=== PATIENT | female | born 1940 | race Caucasian/White ===

== ENCOUNTER 2017-10-02 10:50 | Emergency (ER) | payer MEDICARE, BC ==
--- NOTE | 2017-10-02 11:47 | ED ---
Abdominal Pain/Female - HPI Summary HPI Summary: This is angela Baig documenting for attending Svitlana Wellington MD. This patient is a 77 year old F presenting to ED with a chief complaint of RLQ abdominal pain since 0200 this morning. At 0200 this morning, she woke up from the pain and couldnt fall back asleep. Yesterday morning, the patient was traveling through [place] when she had RLQ aching; it subsided during the day. She is aware that she has a kidney stone currently on her R side. She also reports that on 09/29/17 and 09/30/17, her hemorrhoids bled more than they ever have before. She was able to have BM yesterday and today. The CC is described as sharp and intermittent. The patient rates the pain 3/10 in severity. Symptoms aggravated by certain position. Symptoms alleviated by nothing. Patient denies urinary frequency, burning with urination, N/V, fever, and chills. The patient is not from [place], she is from [place]. She has not had any abdominal surgeries. - History of Current Complaint Chief Complaint: EDFlankPain Stated Complaint: RT FLANK ACHE Time Seen by Provider: 10/02/17 11:22 Hx Obtained From: Patient Onset/Duration: Sudden Onset, Lasting Days - since yesterday morning, subsided during the day, Still Present Timing: Intermittent Episode Lasting Severity Initially: Mild Severity Currently: Mild Pain Intensity: 3 Pain Scale Used: 0-10 Numeric Location: Discrete At: RLQ Character: Sharp Aggravating Factor(s): Other: - certain positions Alleviating Factor(s): Nothing Associated Signs and Symptoms: Positive: Other: - Patient denies urinary frequency, burning with urination, N/V, fever, and chills. Allergies/Adverse Reactions: Allergies Allergy/AdvReac Type Severity Reaction Status Date / Time Sulfa (Sulfonamide Allergy Rash Verified 10/02/17 10:54 Antibiotics) Home Medications: Home Medications Amlodipine Besylate [Norvasc] 5 mg PO DAILY 10/02/17 [History Confirmed 10/02/17 ] Fluticasone HFA 110 mcg(NF) [Flovent HFA 110 mcg(NF)] 1 puff INH BID 10/02/17 [ History Confirmed 10/02/17] PMH/Surg Hx/FS Hx/Imm Hx Cardiovascular History: Reports: Hx Hypertension History: Reports: Hx Kidney Stones Musculoskeletal History: Reports: Hx Arthritis Infectious Disease History: No Infectious Disease History: Denies: Traveled Outside the [place] in Last 30 Days - Family History Known Family History: Positive: Cardiac Disease, Hypertension, Diabetes, Other Family History: lymphoma - Social History Alcohol Use: Occasionally Alcohol Amount: 2 glasses Substance Use Type: Reports: None Smoking Status (MU): Former Smoker Review of Systems Negative: Fever, Chills Positive: Abdominal Pain - RLQ. Negative: Vomiting, Nausea Positive: other - hemorrhoids. Negative: burning, frequency All Other Systems Reviewed And Are Negative: Yes Physical Exam - Summary Physical Exam Summary: GENERAL: Patient is a well-developed and nourished FEMALE who is lying comfortable in the stretcher. Patient is not in any acute respiratory distress. HEAD AND FACE: Normocephalic EYES: PERRLA, EOMI x 2. EARS: Hearing grossly intact. MOUTH: Oropharynx within normal limits. NECK: Supple, trachea is midline, no adenopathy, no JVD, no carotid bruit. CHEST: Symmetric, no tenderness at palpation LUNGS: Clear to auscultation bilaterally. No wheezing or crackles. CVS: Regular rate and rhythm, S1 and S2 present, no murmurs or gallops appreciated. ABDOMEN: Soft, non-tender. Bowel sounds are normal. No abdominal abnormal pulsations. Unable to reproduce her pain. Minimal R CVA tenderness EXTREMITIES: Full ROM in all major joints, no edema, no cyanosis or clubbing. NEURO: Alert and oriented x 3. No acute neurological deficits. Speech is normal and follows commands. SKIN: Dry and warm Triage Information Reviewed: Yes Vital Signs On Initial Exam: Initial Vitals Temp Pulse Resp BP Pulse Ox 98 F 73 14 151/78 99 10/02/17 10:56 10/02/17 10:56 10/02/17 10:56 10/02/17 10:56 10/02/17 10:56 Vital Signs Reviewed: Yes Diagnostics - Vital Signs Vital Signs Temp Pulse Resp BP Pulse Ox 10/02/17 10:56 98 F 73 14 151/78 99 - Laboratory Result Diagrams: 10/02/17 12:02 10/02/17 12:02 Lab Statement: Any lab studies that have been ordered have been reviewed, and results considered in the medical decision making process. - CT CT abd/pel CT Interpretation Completed By: Radiologist - No evidence for appendicitis. Nonobstructing 3 mm calyceal stone lower pole RIGHT kidney. Suggestion of pelvic congestion syndrome in the appropriate clinical context. Small volume of ascites at the pelvis. ED physician has reviewed this radiology report. Re-Evaluation - Re-Evaluation First Eval Re-Evaluation Time: 15:09 Comment: The patient is feeling a bit better. Discussed results with the patient and plan for discharge. Abdominal Pain Fem Course/Dx - Course Course Of Treatment: This patient is a 77 year old F presenting to ED with a chief complaint of RLQ abdominal pain since [address] results was concerning for pelvic congestion syndrome. Discussed the findings with the patient and she reports she feels better. Therefore, she was discharged home with instructions to follow up with her PCP when she gets back to [place]. She is agreeable with this plan. She is hemodynamically stable upon discharge. Strict return precautions given. - Diagnoses Differential Diagnosis: Positive: Other - Pelvic congestion syndrome, kidney stone Provider Diagnoses: Pelvic congestion syndrome, Kidney stone Discharge - Sign-Out/Discharge Documenting (check all that apply): Patient Departure - Discharge Plan Condition: Stable Disposition: HOME Patient Education Materials: Kidney Stones (ED), Pelvic Pain in Women (ED) Referrals: [facility] [Outside] (Follow up with your primary care physician and your [facility]RAFTER when you return home.) Additional Instructions: RETURN TO THE EMERGENCY DEPARTMENT FOR CHANGING OR WORSENING SYMPTOMS.
[2017-10-02 12:07] LABS: ABS Basophils 0.1 10^3/ul (0-0.2); ABS Eosinophils 0.1 10^3/ul (0-0.6); ABS Lymphocytes 1.6 10^3/ul (1.0-4.8); ABS Monocytes 0.5 10^3/ul (0-0.8); ABS Neutrophils 5.1 10^3/ul (1.5-7.7); ABS Nucleated RBC 0 10^3/ul; Eosinophil % 0.7 % (0-6); Hematocrit 41 % (35-47); Hemoglobin 14.1 g/dl (12.0-16.0); Lymphocyte % 22.2 % (25-47); Mean Corpuscular HGB Conc 34 g/dl (31-36); Mean Corpuscular Hemoglobin 31 pg (27-31); Mean Corpuscular Volume 89 fL (80-97); Mean Platelet Volume 8.4 um3 (7.4-10.4); Nucleated Red Blood Cells % 0; Platelet Count 257 10^3/ul (150-450); Red Blood Count 4.61 10^6/ul (4.00-5.40); Red Cell Distribution Width 13 % (10.5-15); White Blood Count 7.3 10^3/ul (3.5-10.8)
[2017-10-02] MEDS ORDERED: Iohexol 300* (CONTRAST) 10 ML SDV IV ONE (12:33)
[2017-10-02 12:51] LABS: Urine Appearance Clear; Urine Color Yellow; Urine Ketones Trace (Negative); Urine Protein Negative (Negative); Urine Specific Gravity 1.014 (1.010-1.030); Urine Urobilinogen Negative (Negative)
[2017-10-02 12:52] LABS: Urine Blood Negative (Negative)
--- NOTE | 2017-10-02 14:16 | RAD ---
INDICATION: RIGHT lower quadrant abdominal pain radiating to the hip. COMPARISON: No relevant prior exams available on the [facility] PACS for comparison. TECHNIQUE: Multidetector CT images were obtained from the lung bases to the ischial tuberosities with 72 mL Omnipaque 300 IV contrast. No oral contrast administered. Multiplanar reformation. REPORT: Unremarkable visualized inferior thorax. Small calcified granulomas at the liver and spleen. No suspicious liver lesions organomegaly. Unremarkable gallbladder and pancreas. Negative for CT abnormality of the upper GI or small bowel. Limited conspicuity of normal diameter appendix reference coronal reformatted images 25-[address] evidence for inflammatory change of the appendix. No CT abnormality of the colon. Small volume of free fluid at the dependent pelvis. Negative for free air or hernias. Normal adrenal glands. Nonobstructing 3 mm calyceal stone lower pole RIGHT kidney. Symmetric nephrograms and pyelograms. Unremarkable nondilated ureters and moderately distended urinary bladder. Retrograde blood flow at the LEFT larger than RIGHT prominent gonadal veins with suggestion of pelvic congestion syndrome in the appropriate clinical context. No additional abnormality of the adnexal regions. Negative for lymphadenopathy. Normal diameter abdominal aorta and iliac arteries with mild atherosclerotic plaque. Physiologic distention of the IVC. Negative for suspicious osseous lesions or fracture. Lumbar sacral spine degenerative spondylosis and facet joint osteoarthritis. IMPRESSION: #. No evidence for appendicitis. #. Nonobstructing 3 mm calyceal stone lower pole RIGHT kidney. #. Suggestion of pelvic congestion syndrome in the appropriate clinical context. #. Small volume of ascites at the pelvis.
[2017-10-02 15:24] VITALS: BP 147/85
== END 2017-10-02 15:23 | disposition home or self-care (01) ==
LOC: ED 10:50
DX: N94.89 Other specified conditions associated with female genital organs and menstrual cycle (principal); N20.0 Calculus of kidney; K64.9 Unspecified hemorrhoids; R18.8 Other ascites; Z88.2 Allergy status to sulfonamides; Z87.891 Personal history of nicotine dependence
CPT/HCPCS: 36415; 74177; 80053; 81003; 83605; 83690; 85025; 86140; 99282; Q9967